=== PATIENT | male | born 1975 | race Caucasian/White ===

== ENCOUNTER → 2021-11-21 | Outpatient (CLI) | payer BC | LOC: KOH-I 15:59 | DX: R06.02 Shortness of breath (principal) | CPT/HCPCS: 71046 ==

== ENCOUNTER → 2022-02-15 | Outpatient (CLI) | payer BC | LOC: KOH-I 09:55 | DX: S82.142A Displaced bicondylar fracture of left tibia, initial encounter for closed fracture (principal); X58.XXXA Exposure to other specified factors, initial encounter | CPT/HCPCS: 73700 ==

== ENCOUNTER 2022-02-21 10:03 | Day surgery (SDC) | payer BC ==
[~2022-02-21] VITALS: Ht 188 cm; Wt 99.8 kg
[2022-02-21] MEDS ORDERED: HYDROCODON-ACE1 EAC2 PO (10:38)
[2022-02-21] MEDS ORDERED: OMEPRAZOLE20 MG PO (10:38)
[2022-02-21] MEDS ORDERED: LISINOPRIL20 MG PO (10:38)
[2022-02-21] MEDS ORDERED: SIMVASTATIN20 MG PO (10:39)
[2022-02-22] MEDS ORDERED: PERCOCET 7.5-31 EACH PO (07:01)
[2022-02-22] MEDS ORDERED: ENOXAPARIN40 MG/0.4 SQ (08:33)
== END 2022-02-22 08:48 | disposition home or self-care (01) ==
LOC: OR 10:03 → M/S 15:41 → OR 02-22 08:48
DX: S82.142A Displaced bicondylar fracture of left tibia, initial encounter for closed fracture (principal); W22.8XXA Striking against or struck by other objects, initial encounter; G89.18 Other acute postprocedural pain; I10 Essential (primary) hypertension; E78.5 Hyperlipidemia, unspecified; J45.909 Unspecified asthma, uncomplicated; K21.9 Gastro-esophageal reflux disease without esophagitis; F17.210 Nicotine dependence, cigarettes, uncomplicated; Z79.899 Other long term (current) drug therapy
CPT/HCPCS: 73560; 73590; 76000; C1713; J0690; J1100; J1170; J1885; J2001; J2250; J2405; J2704; J2795; J3010